=== PATIENT | female | born 1965 | race Caucasian/White ===

== ENCOUNTER → 2024-04-18 09:34 | Outpatient (CLI) | payer OTHER, MEDICAID, SELFPAY ==
--- NOTE | 2024-04-18 09:39 | DI.CT.S_ITS ---
PROCEDURE: CT LE RT WO CON INDICATIONS: ARTHRITIS OF RIGHT ANKLE TECHNIQUE: Noncontrast 3-mm axial sections acquired from the distal tibial shaft to the talar dome, with coronal and sagittal reformats. Dose reduction technique was utilized. COMPARISON: [facility], CR, XR KNEE 1 OR 2 VIEWS LEFT, 02/04/2024, 7:34. [facility], CR, XR ANKLE 3 VIEWS WEIGHT BEARING RIGHT, 12/24/2023, 15:29. FINDINGS: Image quality: Excellent. Bones: No acute fracture or dislocation. Tubular subchondral cyst at the 1st metatarsal medial head with likely intraosseous extension (/[id number]). Joints: Mild-moderate tricompartmental knee osteoarthritis with moderate joint effusion and posterior-medial joint capsule intra-articular bodies (7/53). Severe tibiotalar osteoarthritis with a 1.3 cm anteromedial intra-articular body and moderate joint effusion. Mild subtalar osteoarthritis. Mild midfoot osteoarthritis. Osteophyte formation at the anterior tibial plafond and dorsal talar neck (5/109). Muscles: Mild diffuse muscle atrophy. Tendons: Fluid in the flexor hallucis longus tendon sheath (6/410) as well as at the expected location of the master knot of Arnaud (6/469). The other flexor and extensor tendon contours are preserved. Vessels: No aneurysmal dilatation of the visualized vasculature. Lymph nodes: No popliteal lymphadenopathy. Other soft tissues: Small superficial varicose veins. IMPRESSION: 1. Severe tibiotalar osteoarthritis with moderate joint effusion, 1.3 cm intra-articular body, and findings suggestive of anterior ankle impingement pathology. 2. Mild subtalar and midfoot osteoarthritis. 3. 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 4. Mild-moderate tricompartmental knee osteoarthritis with moderate joint effusion and posterior joint capsule intra-articular bodies. Dictated by: José Aquino M.D. on 04/19/2024 at 16:18 Approved by: José Aquino M.D. on 04/19/2024 at 16:30
== END ==
PROVIDERS: Referring Provider Orthopaedic Surgery Foot and Ankle Surgery; Visit Provider Orthopaedic Surgery Foot and Ankle Surgery
DX: M19.071 Primary osteoarthritis, right ankle and foot (principal); M65.871 Other synovitis and tenosynovitis, right ankle and foot; M17.11 Unilateral primary osteoarthritis, right knee; M25.461 Effusion, right knee
CPT/HCPCS: 73700

== ENCOUNTER 2024-07-12 09:55 | Day surgery (SDC) | payer OTHER, SELFPAY ==
[2024-07-05 14:50] VITALS: BMI 37.8
[2024-07-12] VITALS (7 sets, daily range): BP systolic 105–171; BP diastolic 65–99; PULSE 61–70; RESP 12–16; TEMP 36.1–36.7; O2SAT 94–98; BMI 36.6
--- NOTE | 2024-07-12 | DI.RAD.S_ITS ---
PROCEDURE: XR ANKLE RT 2V INDICATIONS: ARTHROPLASTY R ANKLE TECHNIQUE: 6 digital images from the OR were submitted ankle were acquired. COMPARISON: None. FINDINGS: Bones: There are no osseous abnormalities. Tibiotalar and talocalcaneal joints: Ankle arthroplasty is anatomically aligned. Talocalcaneal joint normal. Soft tissues: No soft tissue swelling, calcification or mass. IMPRESSION: Ankle arthroplasty anatomic alignment. Dictated by: Claude Huber M.D. on 07/13/2024 at 13:07 Approved by: Claude Huber M.D. on 07/13/2024 at 13:08
[2024-07-12] MEDS: CELECOXIB 200 MG CAPSULE PO (10:38)
[2024-07-12] MEDS: LACTATED RINGERS 1,000 ML 42 ML IV ×2 (10:38→13:20)
[2024-07-12] MEDS: ACETAMINOPHEN 325 MG TABLET 975 MG PO (10:38)
[2024-07-12] MEDS: FAMOTIDINE 20 MG/2 ML VIAL IV (10:38)
[2024-07-12] MEDS: GABAPENTIN 600 MG TABLET PO (10:38)
--- NOTE | 2024-07-12 10:58 | PM.PREOP ---
Pre-operative Note Interval Note History & Physical reviewed/Exam performed by Physician: Yes Changes to H&P: No
[2024-07-12] MEDS: CEFAZOLIN 2 GM/100 ML PREMIX 100 ML IV (11:15)
--- NOTE | 2024-07-12 11:16 | PM.OP.1 ---
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 She has failed conservative treatments and has been indicated for total ankle arthroplasty to preserve motion and address her end-stage ankle arthritis and restore function. The risks and benefits of the procedure have been discussed with the patient and given the opportunity to ask questions. The risks of surgery include but are not limited to infection, malunion, nonunion, persistence of pain, damage to nerves and blood vessels, posttraumatic arthritis, DVT, PE, cardiopulmonary complications and . The patient expressed a thorough understanding of the risks and benefits of surgery and has elected to proceed. Consent was signed in the office today. During the operation, the services of a physician surgical instrument repair specialist were medically indicated and necessary to provide the exposure of the operative site for the surgical procedure and to maintain the limb in a proper position to carry out the operation safely and efficiently. Without a qualified assistant site manager being present this would extended the operative procedure and made the procedure technically more difficult to perform. Surgeon: Tiffanie De Fisheries Technician: Juan Antonio Hernandez Anesthesia Type: General, Peripheral nerve block and Local Operative Notes Findings: End-stage varus ankle arthritis, right large osteophytes Closure Type: primary Specimen(s): none sent Prosthetic devices, grafts, tissues, transplants, or devices: [place] 28 apex 3D total ankle Tibia size 2 right, long arc Talus flat cut size 1 narrow Polyethylene insert size 1 thickness 8 vitamin-E ultra high molecular weight polyethylene Medial malleolus screw paragon 28 --->3.5 mm x44 mm fully-threaded screw Estimated Blood Loss (mL): 20 Blood products transfused: none Tourniquet time (min): 72 Procedure in detail: Patient was seen in the preoperative area the site of surgery was marked informed consent confirmed. This was the right ankle. Patient was brought to the operating room by the anesthesia team. A preoperative block was placed for postoperative pain control. This was placed by the anesthesia team. The patient was positioned supine on operative table. All bony prominences were well padded. An SCD was placed on the contralateral lower extremity. An ipsilateral thigh bump was applied. And a stack of blankets was placed below the operative extremity with care to make sure the heel was hanging free. The right lower extremity was then prepped and draped in the standard sterile fashion a formal time-out procedure was performed confirming the patient's side and site of surgery administration of the appropriate preoperative antibiotic. All were in agreement. The Esmarch was then used for exsanguination the tourniquet raised on the thigh to 250 mmHg. Attention turned to the left ankle. Standard landmarks for a 10 cm incision for the anterior approach the ankle was performed just about 1 cm lateral to the tibial crest to the level of the talonavicular joint. This was taken down through the skin and subcutaneous tissue. The extensor retinaculum was then divided. Care was taken to visualize and protect the superficial peroneal nerve branch and retract this laterally. The interval between the tibialis anterior and the EHL was demonstrated, and the EHL and neurovascular bundle was retracted laterally and the tibialis anterior medially. The joint was exposed and the Bovie cautery was used to subperiosteally dissect out the joint. Next the apex 3D model for the tibia was brought in and the applied to the bone and secured in place with 1 pin and then checked on AP fluoroscopy and then the 2nd pin was applied and these were verified in the AP and lateral planes for appropriate placement-there was a little varus and this so the bottle was removed and the fast-track guide was utilized to reposition the varus valgus and then slide the cut block laterally. Once this was appropriate it was pinned in place.. Next the cut block guide was applied and checked for position and slope and then pinned in place. Then the drill holes for the arc tibia of the toes and size were completed with the green guide and then the black guide and then the reciprocal saw was brought in for the gutter cuts. Then the coupled cut to the talus was performed after the talus was pinned neutral and checked on AP and lateral fluoroscopy. The sagittal saw was used for the flat cut talus. Then the tibia was finished with a sized king drill cut guides and then the guide was flipped over and the final drill holes completed. At this point the tibia and talus bone resections were removed. And the spacer block was applied to confirm appropriate resection. Next the guide for the tibial tray was applied and pinned in place and the peg holes were reamed on drill and confirmed on lateral fluoroscopy for appropriate depth. Once this was completed the talus tray was floated and checked for alignment and then pinned in place with the shoulder pins these were finally tightened on hand with a T-handle. Meticulous care was taken to make sure the medial and lateral gutters were clear. Once this was positioned appropriate the drill holes for the pegs on the talus implant were drilled. Then all the implants were removed and the final tibia tray was applied. 1 cc of demineralized graft was applied to the crevices on the ingrowth tray. The tibial tray was then inserted in place and confirmed appropriate alignment on fluoroscopy. Attention was then turned to the talus which was placed in the standard fashion. Then the trial 8 mm poly was applied. This achieved excellent alignment and stability. Range of motion was greater than 10? dorsiflexion with the knee extended 40? plantar flexion and was stable to varus and valgus stress with no requirements for additional ligamentous procedures. At this time the final poly was placed, this was a 8 mm poly. Next given the small size of the ankle a prophylactic medial malleolus screw was placed to prevent stress fracture. A separate incision was made medially for this wire for the cannulated screw was positioned and confirmed at appropriate positioning on AP and lateral x-rays. This was then drilled and measured and a 44 mm 3.5 cannulated headed screw from the paragon 28 set was applied. Final fluoroscopic x-rays an AP mortise and lateral were obtained that demonstrated appropriate hardware alignment and good clear gutters. At this point tourniquet was released hemostasis was achieved. The wounds were closed in a layered fashion including the extensor retinaculum. And the skin was closed with nylon suture. 30 cc of 0.25% Marcaine with epinephrine were injected for local anesthesia. A sterile dressing was applied with Xeroform gauze Webril and a bulky [place] splint in neutral position. The patient was awoken from anesthesia and taken to the recovery area in good condition there were no immediate complications from this procedure. Counts were correct. Complications: none Post-operative Condition: stable Disposition: PACU Plan for aftercare: Touchdown or flatfoot weight-bearing for balance for 2 weeks. Focus on elevation as much as possible. Follow up in Orthopedic Clinic in 2-3 weeks for a wound check. Aspirin 81 mg b.i.d. for DVT prophylaxis. May restart Plavix postoperative day 2.
--- NOTE | 2024-07-12 11:19 | SUR.PREOP ---
Block start time 1055, with a time out at 1050. Monitoring initiated and maintained throughout procedure. Oxygen and medications given per anesthesiologist instructions. Patient remained stable throughout procedure, no adverse reactions noted. Block end time 1111.
--- NOTE | 2024-07-12 11:58 | SUR.OPER ---
Supine on padded OR bed, head on pillow, arms secured on padded arm boards at <90 degrees abduction, legs uncrossed, safety belt at abdomen, tape over blanket over left lower leg, right leg under control of surgeon with blanket bump under right hip.
[2024-07-12] MEDS: BUPIVACAINE 0.25% W/ EPI 30 ML VIAL INJ (12:10)
== END 2024-07-12 15:52 | disposition home or self-care (01) ==
PROVIDERS: PCP Physician Assistant; Referring Provider Physician Assistant; Visit Provider Orthopaedic Surgery Foot and Ankle Surgery
PROC: (CPT 27702; principal; 2024-07-12 11:15)
DX: M19.071 Primary osteoarthritis, right ankle and foot (principal); G89.18 Other acute postprocedural pain; M25.771 Osteophyte, right ankle; E66.9 Obesity, unspecified; Z68.37 Body mass index [BMI] 37.0-37.9, adult
CPT/HCPCS: 27702; 64450; 73600; 76000; C1776; C9359; J0690; J1100; J2250; J2405; J2704; J3010; J3490